=== PATIENT | female | born 1955 | race Caucasian/White ===

== ENCOUNTER 2017-08-17 04:36 | Inpatient (IN) | payer MEDICAID, MEDICARE, OTHER, SELFPAY ==
[~2017-08-17] VITALS: Ht 162.6 cm; Wt 94.0 kg
[2017-08-17] MEDS ORDERED: ONDANSETRON 2MG/ML, 2ML IVPush ONE (05:00)
[2017-08-17] MEDS ORDERED: SODIUM CHLORIDE FLUSH 10ML SYR IVF ONE (05:00)
[2017-08-17] MEDS ORDERED: MORPHINE SULFATE 4 MG/ML, 1ML ONE (05:15)
[2017-08-17] MEDS: MORPHINE SULFATE 4 MG/ML, 1ML IVPush PRN ×2 (05:30→05:46)
[2017-08-17 05:31] LABS: BASOPHILS # (AUTO) 0.05 x10^3/uL (0-0.1); BASOPHILS % (AUTO) 0 % (0-1); EOSINOPHILS # (AUTO) 0.09 x10^3/uL (0-0.4); EOSINOPHILS % (AUTO) 1 % (1-7); LYMPHOCYTES # (AUTO) 1.37 x10^3/uL (1-3.4); LYMPHOCYTES % (AUTO) 8 % (22-44); MD NO; MEAN CORPUSCULAR HEMOGLOBIN 29.4 pg (27.0-34.8); MEAN CORPUSCULAR HGB CONC 33.9 g/dL (32.4-35.8); MEAN CORPUSCULAR VOLUME 86.5 fL (80-100); MEAN PLATELET VOLUME 8.1 fL (7.4-10.4); MONOCYTES # (AUTO) 0.38 x10^3/uL (0.2-0.8); MONOCYTES % (AUTO) 2 % (2-9); NEUTROPHILS # (AUTO) 14.96 x10^3/uL (1.8-6.8); NEUTROPHILS % (AUTO) 89 % (42-75); PLATELET COUNT 353 x10^3/uL (130-400); RED BLOOD COUNT 4.73 x10^6/uL (3.82-5.3); RED CELL DISTRIBUTION WIDTH 13.5 % (9.6-15.2)
[2017-08-17 05:38] LABS: INTERNATIONAL NORMALIZED RATIO 0.96 (0.93-1.1)
[2017-08-17 05:46] LABS: ALBUMIN 3.5 g/dL (3.4-5.0); ANION GAP 9 mmol/L (5-15); CALCIUM 8.2 mg/dL (8.5-10.1); CHLORIDE 98 mmol/L (98-107)
[2017-08-17 05:50] LABS: ALANINE AMINOTRANSFERASE 25 U/L (12-78); ALKALINE PHOSPHATASE 75 U/L (45-117); BILIRUBIN,TOTAL 0.8 mg/dL (0.2-1.0); CREATININE 1.06 mg/dL (0.55-1.02); TOTAL PROTEIN 7.5 g/dL (6.4-8.2)
[2017-08-17] MEDS ORDERED: OMNIPAQUE 350 MG/ML, 100ML BOTTLE ONE (06:17)
[2017-08-17 08:34] VITALS: BP 122/83
[2017-08-17] MEDS ORDERED: LABETALOL 5MG/ML, 20ML IVPush PRN (10:00)
[2017-08-17] MEDS ORDERED: ACETAMINOPHEN 325 MG TABLET PO PRN (10:00)
[2017-08-17] MEDS ORDERED: POLYETHYLENE GLYCOL 17 GM PACKET PO PRN (10:00)
[2017-08-17] MEDS ORDERED: hydrALAzine 20 MG/ML, 1ML IVPush PRN (10:00)
[2017-08-17] MEDS ORDERED: ONDANSETRON ODT 4 MG PO PRN (10:00)
[2017-08-17] MEDS ORDERED: BISACODYL 10 MG SUPP PR PRN (10:00)
[2017-08-17] MEDS ORDERED: PROMETHAZINE 25 MG/ML, 1ML IM PRN (10:00)
[2017-08-17] MEDS ORDERED: ONDANSETRON 2MG/ML, 2ML IVPush PRN (10:00)
[2017-08-17 10:20] LABS: FREE T4 (FREE THYROXINE) 1.4 ng/dL (0.76-1.46); THYROID STIMULATING HORMONE 2.78 mIU/L (0.358-3.740)
[2017-08-17 11:15] VITALS: BP 129/69
[2017-08-17] MEDS: morphine SULFATE 10 MG/ML, 1ML IVPush PRN (11:42)
[2017-08-17] MEDS ORDERED: OXYC-307 PO (12:01)
[2017-08-17] MEDS ORDERED: METO50TA82 PO (12:01)
[2017-08-17] MEDS ORDERED: LEVO25TA4 PO (12:01)
[2017-08-17] MEDS: DOXYCYCLINE 100MG TABLET PO SCH ×2 (12:45→21:32)
[2017-08-17] MEDS: SODIUM CHLORIDE 0.9% 1,000 ML IV SCH ×2 (12:45→21:35)
[2017-08-17] MEDS: FLUTICASONE/VILANTEROL 200-25MCG/INH INH SCH (12:45)
[2017-08-17] MEDS: NICOTINE 14MG/24 HR PATCH.TD24 TD SCH (12:46)
[2017-08-17] MEDS ORDERED: ALBUTEROL SULFATE 2.5 MG/3 ML ONE (12:53)
[2017-08-17] MEDS ORDERED: ALBUTEROL SULFATE 2.5 MG/3 ML NPPB PRN (13:30)
[2017-08-17 14:29] VITALS: BP 117/74
[2017-08-17] MEDS: OXYcodone IR 5MG TABLET PO PRN ×2 (16:59→21:32)
[2017-08-17 19:06] VITALS: BP 127/60
[2017-08-17] MEDS: METOPROLOL TARTRATE 50 MG TABLET PO SCH (21:32)
[2017-08-18 00:59] LABS: MICROSCOPIC AUTO
[2017-08-18 01:16] LABS: CULTURE INDICATED? NO
[2017-08-18 02:24] VITALS: BP 130/64
[2017-08-18] MEDS: OXYcodone IR 5MG TABLET PO PRN ×4 (05:18→17:54)
[2017-08-18] MEDS: LEVOTHYROXINE 25 MCG TABLET PO SCH (05:18)
[2017-08-18 05:31] LABS: BASOPHILS # (AUTO) 0.03 x10^3/uL (0-0.1); BASOPHILS % (AUTO) 0 % (0-1); EOSINOPHILS # (AUTO) 0.17 x10^3/uL (0-0.4); EOSINOPHILS % (AUTO) 2 % (1-7); LYMPHOCYTES # (AUTO) 2.08 x10^3/uL (1-3.4); LYMPHOCYTES % (AUTO) 18 % (22-44); MD NO; MEAN CORPUSCULAR HEMOGLOBIN 29.7 pg (27.0-34.8); MEAN CORPUSCULAR VOLUME 87.5 fL (80-100); MONOCYTES # (AUTO) 0.64 x10^3/uL (0.2-0.8); MONOCYTES % (AUTO) 6 % (2-9); NEUTROPHILS # (AUTO) 8.56 x10^3/uL (1.8-6.8); NEUTROPHILS % (AUTO) 75 % (42-75); PLATELET COUNT 274 x10^3/uL (130-400); RED CELL DISTRIBUTION WIDTH 13.5 % (9.6-15.2)
[2017-08-18 05:34] LABS: ALANINE AMINOTRANSFERASE 20 U/L (12-78); ANION GAP 7 mmol/L (5-15); CALCIUM 7.7 mg/dL (8.5-10.1); CHLORIDE 104 mmol/L (98-107)
[2017-08-18 05:36] LABS: ALKALINE PHOSPHATASE 60 U/L (45-117); BILIRUBIN,TOTAL 0.6 mg/dL (0.2-1.0); CHOL/HDL RATIO 3.5; CHOLESTEROL, TOTAL 172 mg/dL (140-239); CREATININE 0.79 mg/dL (0.55-1.02); HDL CHOL % 28 % (28-40); HDL CHOLESTEROL (DIRECT) 49 mg/dL (40-60); LDL CHOLESTEROL,CALCULATED 88 mg/dL (54-169); LDL/HDL RATIO 1.8 (0.5-3.0); TOTAL PROTEIN 6.5 g/dL (6.4-8.2); TRIGLYCERIDES 173 mg/dL (50-200); VLDL CHOLESTEROL 35 mg/dL (0-25)
[2017-08-18 07:17] VITALS: BP 133/77
[2017-08-18] MEDS: METOPROLOL TARTRATE 50 MG TABLET PO SCH ×2 (09:02→21:23)
[2017-08-18] MEDS: NICOTINE 14MG/24 HR PATCH.TD24 TD SCH (09:02)
[2017-08-18] MEDS: DOXYCYCLINE 100MG TABLET PO SCH ×2 (09:03→21:23)
[2017-08-18] MEDS: SENNA/DOCUSATE TABLET PO SCH (09:03)
[2017-08-18] MEDS: FLUTICASONE/VILANTEROL 200-25MCG/INH INH SCH (09:03)
[2017-08-18 13:36] VITALS: BP 110/69
[2017-08-18 19:16] VITALS: BP 149/70
[2017-08-18] MEDS: morphine SULFATE 10 MG/ML, 1ML IVPush PRN (21:23)
[2017-08-19 01:37] VITALS: BP 113/64
[2017-08-19] MEDS: LEVOTHYROXINE 25 MCG TABLET PO SCH (05:30)
[2017-08-19] MEDS: OXYcodone IR 5MG TABLET PO PRN ×2 (05:31→09:35)
[2017-08-19 06:12] LABS: BASOPHILS # (AUTO) 0.02 x10^3/uL (0-0.1); BASOPHILS % (AUTO) 0 % (0-1); EOSINOPHILS # (AUTO) 0.16 x10^3/uL (0-0.4); EOSINOPHILS % (AUTO) 2 % (1-7); LYMPHOCYTES # (AUTO) 1.58 x10^3/uL (1-3.4); LYMPHOCYTES % (AUTO) 19 % (22-44); MD NO; MEAN CORPUSCULAR HEMOGLOBIN 29.3 pg (27.0-34.8); MEAN CORPUSCULAR HGB CONC 33.4 g/dL (32.4-35.8); MEAN CORPUSCULAR VOLUME 87.7 fL (80-100); MEAN PLATELET VOLUME 8.1 fL (7.4-10.4); MONOCYTES # (AUTO) 0.49 x10^3/uL (0.2-0.8); MONOCYTES % (AUTO) 6 % (2-9); NEUTROPHILS # (AUTO) 6.07 x10^3/uL (1.8-6.8); NEUTROPHILS % (AUTO) 73 % (42-75); PLATELET COUNT 240 x10^3/uL (130-400); RED BLOOD COUNT 3.53 x10^6/uL (3.82-5.3); RED CELL DISTRIBUTION WIDTH 13.6 % (9.6-15.2)
[2017-08-19 06:18] LABS: CHLORIDE 104 mmol/L (98-107)
[2017-08-19 06:24] LABS: ANION GAP 6 mmol/L (5-15); CALCIUM 7.9 mg/dL (8.5-10.1); CREATININE 0.65 mg/dL (0.55-1.02)
[2017-08-19 08:05] VITALS: BP 143/81
[2017-08-19] MEDS: FLUTICASONE/VILANTEROL 200-25MCG/INH INH SCH (08:37)
[2017-08-19] MEDS: NICOTINE 14MG/24 HR PATCH.TD24 TD SCH (08:37)
[2017-08-19] MEDS: SENNA/DOCUSATE TABLET PO SCH (08:38)
[2017-08-19] MEDS: DOXYCYCLINE 100MG TABLET PO SCH (08:38)
[2017-08-19] MEDS: METOPROLOL TARTRATE 50 MG TABLET PO SCH (08:38)
[2017-08-19] MEDS ORDERED: DOXY100T PO (11:39)
[2017-08-19 12:00] VITALS: BP 138/76
== END 2017-08-19 12:10 | disposition home or self-care (01) | DRG 604 ==
LOC: ED 06:45 → EDIP 07:02 → 4NOR 08:24
PROVIDERS: ADMIT Internal Medicine; ATTEND Internal Medicine
DX: S30.1XXA Contusion of abdominal wall, initial encounter (principal); N17.0 Acute kidney failure with tubular necrosis; J18.9 Pneumonia, unspecified organism; E87.1 Hypo-osmolality and hyponatremia; C67.9 Malignant neoplasm of bladder, unspecified; D72.829 Elevated white blood cell count, unspecified; X58.XXXA Exposure to other specified factors, initial encounter; E89.0 Postprocedural hypothyroidism; M19.90 Unspecified osteoarthritis, unspecified site; G89.29 Other chronic pain; I10 Essential (primary) hypertension; F17.210 Nicotine dependence, cigarettes, uncomplicated; I25.10 Atherosclerotic heart disease of native coronary artery without angina pectoris; K57.90 Diverticulosis of intestine, part unspecified, without perforation or abscess without bleeding; Z85.51 Personal history of malignant neoplasm of bladder; Z79.891 Long term (current) use of opiate analgesic; Y93.89 Activity, other specified; Y92.89 Other specified places as the place of occurrence of the external cause; Y99.8 Other external cause status; Z71.6 Tobacco abuse counseling; Z88.0 Allergy status to penicillin
CPT/HCPCS: 36415; 71045; 74177; 80048; 80053; 80061; 81001; 83690; 83735; 84439; 84443; 85014; 85018; 85025; 85610; 86850; 86900; 93005; 94640; 96374; Q0162; Q9967; J2270; J7030

== ENCOUNTER 2017-12-14 10:39 | Day surgery (SDC) | payer MEDICARE, OTHER ==
[~2017-12-14] VITALS: Ht 157.5 cm; Wt 87.4 kg
[~2017-12-14 10:39] MED LIST: DOXY100T PO; LEVO25TA4 PO; METO50TA82 PO; OXYC-307 PO
[2017-12-14] MEDS ORDERED: SODIUM CHLORIDE 0.9% 1,000 ML IV SCH (11:10)
[2017-12-14] MEDS ORDERED: CEFAZOLIN PMX 1GM/50ML 50 ML IV ONE (11:30)
[2017-12-14 11:57] VITALS: BP 129/85
[2017-12-14] MEDS ORDERED: LIDOCAINE-MPF 2%, 2ML ONE (12:27)
[2017-12-14] MEDS ORDERED: FLUMAZENIL 0.1 MG/1 ML, 5ML ONE (12:30)
[2017-12-14] MEDS ORDERED: NALOXONE 1 MG/ML, 2ML ONE (12:30)
[2017-12-14] MEDS ORDERED: MIDAZOLAM 1 MG/ML, 5ML ONE (12:30)
[2017-12-14] MEDS ORDERED: FENTANYL PF 100 MCG/2ML ONE (12:30)
== END 2017-12-14 17:00 | disposition home or self-care (01) ==
LOC: OUT 10:39
PROVIDERS: ATTEND Internal Medicine Hematology & Oncology
DX: Z45.2 Encounter for adjustment and management of vascular access device (principal); C67.9 Malignant neoplasm of bladder, unspecified; I10 Essential (primary) hypertension; E03.9 Hypothyroidism, unspecified; J44.9 Chronic obstructive pulmonary disease, unspecified; Z88.0 Allergy status to penicillin; Z98.890 Other specified postprocedural states; Z87.891 Personal history of nicotine dependence
CPT/HCPCS: 36561; 76937; 77001; 99156; 99157; C1769; C1788; C1894; J0690; J1642; J2250; J3010; J3490; J7030; J2310